=== PATIENT | female | born 2000 | race Caucasian/White ===

== ENCOUNTER 2022-03-15 22:09 | Emergency (ER) | payer MEDICAID ==
[~2022-03-15] VITALS: Ht 170.2 cm; Wt 63.6 kg
[2022-03-15 22:13] VITALS: BP 126/77
[2022-03-15] MEDS ORDERED: TETanus/Pertussis (Acell)/Diphther VAC/PF (Tdap-Adult) 0.5ml syringe IMVAC ONE (23:20)
[2022-03-15] MEDS ORDERED: HYDR-3972 PO (23:58)
[2022-03-16] MEDS ORDERED: ondansetron 4mg rapidly disintigrating tab PO ONE
[2022-03-16] MEDS ORDERED: HYDROcodone/acetaminophen 10/325mg tab PO ONE
--- NOTE | 2022-03-16 00:30 | NUR ---
all wounds washed with NS, then dressed with antibiotic ointment, telfa, gauze and coban.
== END 2022-03-16 01:59 | disposition home or self-care (01) ==
LOC: ER 22:11
DX: S00.81XA Abrasion of other part of head, initial encounter (principal); S30.811A Abrasion of abdominal wall, initial encounter; S50.312A Abrasion of left elbow, initial encounter; S50.311A Abrasion of right elbow, initial encounter; S80.212A Abrasion, left knee, initial encounter; X58.XXXA Exposure to other specified factors, initial encounter; Y93.89 Activity, other specified; Y92.89 Other specified places as the place of occurrence of the external cause; Y99.8 Other external cause status
CPT/HCPCS: 70450; 73564; 90471; 90715; 99284; A6258